=== PATIENT | male | born 1975 | race Caucasian/White ===

== ENCOUNTER 2018-06-21 08:32 | Emergency (ER) | payer OTHER, SELFPAY ==
[2018-06-21] VITALS (8 sets, daily range): BP systolic 117–176; BP diastolic 69–112; PULSE 91–132; RESP 16–22; TEMP 37.7–38.3; O2SAT 97–98; BMI 77.5
--- NOTE | 2018-06-21 08:59 | ED.HA ---
HPI - Headache General Chief Complaint: Headache Stated Complaint: SICK FOR WEEK,SINUS INFECTION Time Seen by Provider: 06/21/18 08:55 Source: patient Mode of arrival: ambulatory Limitations: no limitations History of Present Illness HPI Narrative: This is a 43-year-old male comes to the emergency department with complaint of sinus pressure, nasal congestion, some upper respiratory symptoms. Patient states that he has been having this since about the 12 of June and has not been improving. Patient states that he has had fever on the 12 of June and feels like he has 1 today. He is denying any chest pain or pressure, he states some shortness of breath but more upper respiratory. He denies any diaphoresis, no nausea, no vomiting or other sweating. Patient has not had any other GI or urinary symptoms. Patient states he has had pressure particularly the maxillary sinus on the right and a little bit above. He states that it has been moderate. 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 Patient states they never did find out why he had the cardiac arrest. He does take medication for blood pressure. Patient states his rn transport is Dr. Beth through [facility]. He is denying any headache it is more sinus discomfort. Related Data Home Medications Medication Instructions Recorded Confirmed metoprolol succinate 25 mg PO BID 06/21/18 06/21/18 Previous Rx's Medication Instructions Recorded amoxicillin 500 mg PO TID #30 cap 06/21/18 Allergies Allergy/AdvReac Type Severity Reaction Status Date / Time No Known Drug Allergies Allergy Verified 06/21/18 09:22 Review of Systems Review of Systems ROS Unobtainable: All systems reviewed & are unremarkable except as noted in HPI and below Constitutional Denies excessive sweating, Reports fever(s) (Today) and Denies headache(s) Eyes Denies blurry vision and Denies change in vision ENT Ears, Nose, Mouth, and Throat: Reports as per HPI, Reports dental pain, Denies dizziness, Denies ear discharge, Reports facial pain (sinus pressure), Denies headache(s), Reports nasal congestion, Reports post nasal drip, Reports sinus pressure and Denies sore throat Cardiovascular Denies chest pain, Denies diaphoresis, Denies syncope, Reports rapid heart rate (normally at doctor), Denies edema, Denies irregular heart rhythm, Denies lightheadedness, Denies palpitations, Denies dyspnea, Denies dyspnea on exertion and Denies orthopnea Respiratory Denies chest congestion, Denies cough, Denies excessive phlegm production, Denies pain with cough, Denies dyspnea, Denies dyspnea on exertion and Denies wheezing Gastrointestinal Gastrointestinal: Denies abdominal pain, Denies change in bowel habits, Denies diarrhea, Denies nausea and Denies vomiting Genitourinary Denies difficulty urinating Musculoskeletal Denies back pain Integumentary/Breasts Denies rash Neurologic Denies dizziness, Denies syncope and Denies headache(s) Endocrine Denies excessive sweating and Denies palpitations Allergic/Immunologic Denies wheezing PFSH Medical History Cardiac arrest, cause unspecified (Acute) Social History Smoking Status: Smoker, status unknown Exam Narrative Exam Narrative: GEN: Obese male, alert and oriented x 3, patient appears to be in mild distress. No diaphoresis. HEENT: Atraumatic, pupils are equal round reactive to light, extraocular movements are intact, nares thick yellow rhinorrhea, TMs are clear with no fluid, there is no conjunctival pallor. Throat is clear without any exudates, erythema, tonsillar enlargement or uvular deviation, patient has moderate tenderness over the right maxilla, no facial swelling. HEART: Regular but tachycardic rate and rhythm without murmur, clicks, rubs. Pulses are equal in upper and lower extremities LUNGS:Lungs slightly decreased, no wheezes, rales, crackles, chest moves symmetrically, no tachypnea accessory muscle use. ABD:bowel sounds normal, soft, non-tender, no guarding, rebound, rigidity, no masses noted, no hepatosplenomegaly :No CVA tenderness MSCL: Non-tender, no muscle atrophy, muscles strength 5/5 upper and lower extremities, full range of motion, normal gait NEURO:CN 2-12 intact, sensation normal, reflexes 2/4 upper and lower extremities. Initial Vital Signs Initial Vital Signs: Vital Signs Temperature 100.6 F H 06/21/18 08:42 Pulse Rate 132 H 06/21/18 08:42 Respiratory Rate 22 06/21/18 08:42 Blood Pressure 176/112 H 06/21/18 08:42 Pulse Oximetry 98 06/21/18 08:42 Course Orders Ordered: Discontinued Medications Acetaminophen (Tylenol) 650 mg PO NOW ONE Stop: 06/21/18 08:58 Last Admin: 06/21/18 09:28 Dose: 650 mg Atropine Sulfate (Atropine) 1 mg IV NOW ONE Stop: 06/21/18 09:14 Last Admin: 06/21/18 10:26 Dose: Sodium Chloride (Normal Saline 0.9%) 7,350 mls @ 2,450 mls/hr 30 ml/kg infuse over 3 hr (7350 ml) IV CONT NANNETTE Last Infusion: 06/21/18 12:09 Dose: 0 mls/hr Admin: 06/21/18 09:28 Dose: 2,450 mls/hr Ondansetron HCl (Zofran) 4 mg IV NOW ONE Stop: 06/21/18 09:22 Last Admin: 06/21/18 09:28 Dose: 4 mg Vital Signs - 8 hr 06/21/18 12:01 06/21/18 12:09 Pulse Rate 91 H 95 H Respiratory Rate 16 16 Blood Pressure 126/79 Blood Pressure [Right Arm] 126/79 Pulse Oximetry 97 97 MDM - Headache Lab Data Attestation: I reviewed the patient's lab results. Result diagrams: 06/21/18 09:00 06/21/18 09:00 Lab Results 06/21/18 06/21/18 06/21/18 Range/Units 09:00 09:00 09:00 WBC 15.3 H (4.5-11.0) X10^3/uL RBC 4.88 (4.5-5.9) X10^6/uL Hgb 15.4 (13.5-17.5) g/dL Hct 44.7 (41-53) % MCV 91.6 (80-100) fL MCH 31.6 (26-34) PG MCHC 34.5 (30-36) % RDW 13.3 (11.6-14.8) % Plt Count 406 H (150-400) X10^3/uL Neut % (Auto) 82.4 H (50-75) % Lymph % (Auto) 9.3 L (25-40) % [place] % (Auto) 7.9 (3-14) % Eos % (Auto) 0.2 L (2-4) % Baso % (Auto) 0.2 (0-2) % Neut # (Auto) 32472 H (0002-7501) /uL Sodium 135 L (137-145) mmol/L Potassium 4.4 (3.4-5.1) mmol/L Chloride 97 L (98-107) mmol/L Carbon Dioxide 24 (22-32) mmol/L BUN 10 (9-20) mg/dL Creatinine 1.00 (0.66-1.25) mg/dL Estimated GFR > 60.0 (>60) mL/min BUN/Creatinine Ratio 10.0 (6-22) Glucose 112 H (70-100) mg/dL Lactate (0.7-2.1) mmol/L Calcium 9.7 (8.4-10.2) mg/dL Total Bilirubin 0.9 (0.2-1.3) mg/dL AST 28 (17-59) IU/L ALT 48 (21-72) IU/L Alkaline Phosphatase 101 (38-126) U/L Total Creatine Kinase 63 (55-170) U/L CK-MB (CK-2) TNP CK-MB (CK-2) Rel Index TNP Troponin I < 0.012 (0.01-0.034) ng/mL Total Protein 9.0 H (6.3-8.2) g/dL Albumin 4.8 (3.5-5.0) g/dL Globulin 4.2 H (1.7-4.1) g/dL Albumin/Globulin Ratio 1.1 (1.0-2.8) Procalcitonin 0.11 (<0.5) ng/mL Influenza A & B (PCR) (Negative) 06/21/18 06/21/18 06/21/18 Range/Units 09:00 09:00 09:48 WBC (4.5-11.0) X10^3/uL RBC (4.5-5.9) X10^6/uL Hgb (13.5-17.5) g/dL Hct (41-53) % MCV (80-100) fL MCH (26-34) PG MCHC (30-36) % RDW (11.6-14.8) % Plt Count (150-400) X10^3/uL Neut % (Auto) (50-75) % Lymph % (Auto) (25-40) % [place] % (Auto) (3-14) % Eos % (Auto) (2-4) % Baso % (Auto) (0-2) % Neut # (Auto) (4750-7805) /uL Sodium (137-145) mmol/L Potassium (3.4-5.1) mmol/L Chloride (98-107) mmol/L Carbon Dioxide (22-32) mmol/L BUN (9-20) mg/dL Creatinine (0.66-1.25) mg/dL Estimated GFR (>60) mL/min BUN/Creatinine Ratio (6-22) Glucose (70-100) mg/dL Lactate 0.7 (0.7-2.1) mmol/L Calcium (8.4-10.2) mg/dL Total Bilirubin (0.2-1.3) mg/dL AST (17-59) IU/L ALT (21-72) IU/L Alkaline Phosphatase (38-126) U/L Total Creatine Kinase Cancelled (55-170) U/L CK-MB (CK-2) Cancelled CK-MB (CK-2) Rel Index Cancelled Troponin I Cancelled (0.01-0.034) ng/mL Total Protein (6.3-8.2) g/dL Albumin (3.5-5.0) g/dL Globulin (1.7-4.1) g/dL Albumin/Globulin Ratio (1.0-2.8) Procalcitonin (<0.5) ng/mL Influenza A & B (PCR) Negative (Negative) Point of Care Testing Glucose POC 358 Imaging Data Chest x-ray: Radiologist's impression: [address] [address] XRay Report Signed Patient: Jazmine Yu MR#: [id number] : 1975 Acct:[id number] Age/Sex: 43 / M Date of Service: 06/21/18 Loc: ED Accession Number: [id number] Procedure: XR chest 1V Ordering Provider: Eliana Foreman D.O. PROCEDURE: XR CHEST 1V INDICATIONS: headache, fever, cough, nasal congestion TECHNIQUE: One view of the chest was acquired. COMPARISON: None. FINDINGS: Surgical changes and devices: Left chest wall cardiac device lead is seen in the region of right ventricle.. Lungs and pleura: No pleural effusions or pneumothorax. Mild increased bronchovascular markings and bilateral hilar region are seen with Dr. wall thickening. No definite focal infiltrate. Mediastinum: Mediastinal contours appear normal. Heart size is normal. Bones and chest wall: No suspicious bony lesions. Overlying soft tissues appear unremarkable. IMPRESSION: Suggestion of mild reactive early disease such as bronchitis or asthma. No definite focal infiltrate. Dictated by: Cristian Stafford M.D. on 06/21/2018 at 9:38 Approved by: Cristian Stafford M.D. on 06/21/2018 at 9:40 ECG Data Attestation: I personally reviewed and interpreted this ECG as follows: Prior ECG tracings: not available for review Interpretation: Sinus tachycardia patient has some T-wave inversion in 3 AVF but nonspecific otherwise. No ST elevation appreciated. Rate is 118, P are interval is 134, QRS is 93 and QTC is 366. Patient has a repeat EKG patient's rate is 93 P are is 108 QRS is 90 and QTC is 411. Patient does not have any ST segment changes. MDM Narrative Medical decision making narrative: After patient's IV was placed his heart rate dropped down into the 50s he became lightheaded and diaphoretic and had a syncopal episode while lying in bed. Patient continued to have a heart rate in the 50s and was unresponsive was given atropine IV. HR did not respond immediately. After several minutes improved to 90s and then slowly to 120's again. Patient states that he has had several syncopal episodes while having IVs Um placed in the past. He states he does not do well with blood. He states he started feeling lightheaded while they were placing the IV and his syncopal episode happened a minute or 2 afterwards. On recheck patient is feeling much better. Heart rate is still elevated in the 1 teens. He states that this is a chronic issue that typically happens when he shows up at a physician's office or the emergency department. Patient does have a CA CD defibrillator and states that it does transmit regularly and is reviewed. He states he got a call about a month ago when his heart rate was elevated for a period but he was exercising. He has not had any other calls recently. Patient does have a white count, he is febrile with sinus tenderness. He has some yellowish thick drip nasal drainage he meets criteria for sinusitis. We discussed CT versus going ahead with treatment patient is comfortable with plan to treat with antibiotics. Patient has otherwise been asymptomatic while here. Discussed with patient he feels comfortable returning home plan for antibiotics and short-term follow-up. Patient has a white count, the rest of his labs did not show any major abnormalities. Chest x-ray does not show any pneumonia. Patient's heart rate has improved to the mid 90s consistently after 1.5 L of fluid. Patient is feeling much better and plan to DC home to start on oral antibiotics. Patient is to return if any other new changes and we discussed anticipatory guidance. Discharge Plan Departure Patient Disposition: Home Clinical Impression: Sinusitis Discharge Date/Time: 06/21/18 12:10 Interventions: ED Discharge Assessment Last Done: 06/21/18 12:09 Instructions: DI for Sinusitis Activity Restrictions/Additional Instructions: Follow up with primary care physician in the next 3-5 days if your symptoms are not improving rapidly. Take antibiotics until they are completely gone. You may take ibuprofen and/or Tylenol as needed for fevers as well as a pain. Return to the emergency department for persistent fevers, swelling of the face, mouth, pain behind the eye, severe headaches, worsening facial pain if you are having any chest pain, shortness of breath, passing out, persistent vomiting or other new or concerning symptoms. Prescriptions: New amoxicillin 500 mg capsule 500 mg PO TID Qty: 30 RF: 0 No Action metoprolol succinate 25 mg tablet extended release 24 hr 25 mg PO BID RF: 0 Stand Alone Forms: Work Release Note
--- NOTE | 2018-06-21 09:20 | ED_ITS ---
HPI - Headache General Chief Complaint: Headache Stated Complaint: SICK FOR WEEK,SINUS INFECTION Time Seen by Provider: 06/21/18 08:55 Source: patient Mode of arrival: ambulatory Limitations: no limitations History of Present Illness HPI Narrative: This is a 43-year-old male comes to the emergency department with complaint of sinus pressure, nasal congestion, some upper respiratory symptoms. Patient states that he has been having this since about the 12 of June and has not been improving. Patient states that he has had fever on the 12 of June and feels like he has 1 today. He is denying any chest pain or pressure, he states some shortness of breath but more upper respiratory. He denies any diaphoresis, no nausea, no vomiting or other sweating. Patient has not had any other GI or urinary symptoms. Patient states he has had pressure particularly the maxillary sinus on the right and a little bit above. He states that it has been moderate. 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 Patient states they never did find out why he had the cardiac arrest. He does take medication for blood pressure. Patient states his executive advisor is Dr. Beth through [facility]. He is denying any headache it is more sinus discomfort. Related Data Home Medications Medication Instructions Recorded Confirmed metoprolol succinate 25 mg PO BID 06/21/18 06/21/18 Previous Rx's Medication Instructions Recorded amoxicillin 500 mg PO TID #30 cap 06/21/18 Allergies Allergy/AdvReac Type Severity Reaction Status Date / Time No Known Drug Allergies Allergy Verified 06/21/18 09:22 Review of Systems Review of Systems ROS Unobtainable: All systems reviewed & are unremarkable except as noted in HPI and below Constitutional Denies excessive sweating, Reports fever(s) (Today) and Denies headache(s) Eyes Denies blurry vision and Denies change in vision ENT Ears, Nose, Mouth, and Throat: Reports as per HPI, Reports dental pain, Denies dizziness, Denies ear discharge, Reports facial pain (sinus pressure), Denies headache(s), Reports nasal congestion, Reports post nasal drip, Reports sinus pressure and Denies sore throat Cardiovascular Denies chest pain, Denies diaphoresis, Denies syncope, Reports rapid heart rate (normally at doctor), Denies edema, Denies irregular heart rhythm, Denies lightheadedness, Denies palpitations, Denies dyspnea, Denies dyspnea on exertion and Denies orthopnea Respiratory Denies chest congestion, Denies cough, Denies excessive phlegm production, Denies pain with cough, Denies dyspnea, Denies dyspnea on exertion and Denies wheezing Gastrointestinal Gastrointestinal: Denies abdominal pain, Denies change in bowel habits, Denies diarrhea, Denies nausea and Denies vomiting Genitourinary Denies difficulty urinating Musculoskeletal Denies back pain Integumentary/Breasts Denies rash Neurologic Denies dizziness, Denies syncope and Denies headache(s) Endocrine Denies excessive sweating and Denies palpitations Allergic/Immunologic Denies wheezing PFSH Medical History Cardiac arrest, cause unspecified (Acute) Social History Smoking Status: Smoker, status unknown Exam Narrative Exam Narrative: GEN: Obese male, alert and oriented x 3, patient appears to be in mild distress. No diaphoresis. HEENT: Atraumatic, pupils are equal round reactive to light, extraocular movements are intact, nares thick yellow rhinorrhea, TMs are clear with no fluid , there is no conjunctival pallor. Throat is clear without any exudates, erythema, tonsillar enlargement or uvular deviation, patient has moderate tenderness over the right maxilla, no facial swelling. HEART: Regular but tachycardic rate and rhythm without murmur, clicks, rubs. Pulses are equal in upper and lower extremities LUNGS:Lungs slightly decreased, no wheezes, rales, crackles, chest moves symmetrically, no tachypnea accessory muscle use. ABD:bowel sounds normal, soft, non-tender, no guarding, rebound, rigidity, no masses noted, no hepatosplenomegaly :No CVA tenderness MSCL: Non-tender, no muscle atrophy, muscles strength 5/5 upper and lower extremities, full range of motion, normal gait NEURO:CN 2-12 intact, sensation normal, reflexes 2/4 upper and lower extremities. Initial Vital Signs Initial Vital Signs: Vital Signs Temperature 100.6 F H 06/21/18 08:42 Pulse Rate 132 H 06/21/18 08:42 Respiratory Rate 22 06/21/18 08:42 Blood Pressure 176/112 H 06/21/18 08:42 Pulse Oximetry 98 06/21/18 08:42 Course Orders Ordered: Discontinued Medications Acetaminophen (Tylenol) 650 mg PO NOW ONE Stop: 06/21/18 08:58 Last Admin: 06/21/18 09:28 Dose: 650 mg Atropine Sulfate (Atropine) 1 mg IV NOW ONE Stop: 06/21/18 09:14 Last Admin: 06/21/18 10:26 Dose: Sodium Chloride (Normal Saline 0.9%) 7,350 mls @ 2,450 mls/hr 30 ml/kg infuse over 3 hr (7350 ml) IV CONT NANNETTE Last Infusion: 06/21/18 12:09 Dose: 0 mls/hr Admin: 06/21/18 09:28 Dose: 2,450 mls/hr Ondansetron HCl (Zofran) 4 mg IV NOW ONE Stop: 06/21/18 09:22 Last Admin: 06/21/18 09:28 Dose: 4 mg Vital Signs - 8 hr 06/21/18 12:01 06/21/18 12:09 Pulse Rate 91 H 95 H Respiratory Rate 16 16 Blood Pressure 126/79 Blood Pressure [Right Arm] 126/79 Pulse Oximetry 97 97 MDM - Headache Lab Data Attestation: I reviewed the patient's lab results. Result diagrams: 06/21/18 09:00 06/21/18 09:00 Lab Results 06/21/18 06/21/18 06/21/18 Range/Units 09:00 09:00 09:00 WBC 15.3 H (4.5-11.0) X10^3/uL RBC 4.88 (4.5-5.9) X10^6/uL Hgb 15.4 (13.5-17.5) g/dL Hct 44.7 (41-53) % MCV 91.6 (80-100) fL MCH 31.6 (26-34) PG MCHC 34.5 (30-36) % RDW 13.3 (11.6-14.8) % Plt Count 406 H (150-400) X10^3/uL Neut % (Auto) 82.4 H (50-75) % Lymph % (Auto) 9.3 L (25-40) % [place] % (Auto) 7.9 (3-14) % Eos % (Auto) 0.2 L (2-4) % Baso % (Auto) 0.2 (0-2) % Neut # (Auto) 23572 H (1022-1375) /uL Sodium 135 L (137-145) mmol/L Potassium 4.4 (3.4-5.1) mmol/L Chloride 97 L (98-107) mmol/L Carbon Dioxide 24 (22-32) mmol/L BUN 10 (9-20) mg/dL Creatinine 1.00 (0.66-1.25) mg/dL Estimated GFR > 60.0 (>60) mL/min BUN/Creatinine Ratio 10.0 (6-22) Glucose 112 H (70-100) mg/dL Lactate (0.7-2.1) mmol/L Calcium 9.7 (8.4-10.2) mg/dL Total Bilirubin 0.9 (0.2-1.3) mg/dL AST 28 (17-59) IU/L ALT 48 (21-72) IU/L Alkaline Phosphatase 101 (38-126) U/L Total Creatine Kinase 63 (55-170) U/L CK-MB (CK-2) TNP CK-MB (CK-2) Rel Index TNP Troponin I < 0.012 (0.01-0.034) ng/mL Total Protein 9.0 H (6.3-8.2) g/dL Albumin 4.8 (3.5-5.0) g/dL Globulin 4.2 H (1.7-4.1) g/dL Albumin/Globulin Ratio 1.1 (1.0-2.8) Procalcitonin 0.11 (<0.5) ng/mL Influenza A & B (PCR) (Negative) 06/21/18 06/21/18 06/21/18 Range/Units 09:00 09:00 09:48 WBC (4.5-11.0) X10^3/uL RBC (4.5-5.9) X10^6/uL Hgb (13.5-17.5) g/dL Hct (41-53) % MCV (80-100) fL MCH (26-34) PG MCHC (30-36) % RDW (11.6-14.8) % Plt Count (150-400) X10^3/uL Neut % (Auto) (50-75) % Lymph % (Auto) (25-40) % [place] % (Auto) (3-14) % Eos % (Auto) (2-4) % Baso % (Auto) (0-2) % Neut # (Auto) (5039-0238) /uL Sodium (137-145) mmol/L Potassium (3.4-5.1) mmol/L Chloride (98-107) mmol/L Carbon Dioxide (22-32) mmol/L BUN (9-20) mg/dL Creatinine (0.66-1.25) mg/dL Estimated GFR (>60) mL/min BUN/Creatinine Ratio (6-22) Glucose (70-100) mg/dL Lactate 0.7 (0.7-2.1) mmol/L Calcium (8.4-10.2) mg/dL Total Bilirubin (0.2-1.3) mg/dL AST (17-59) IU/L ALT (21-72) IU/L Alkaline Phosphatase (38-126) U/L Total Creatine Kinase Cancelled (55-170) U/L CK-MB (CK-2) Cancelled CK-MB (CK-2) Rel Index Cancelled Troponin I Cancelled (0.01-0.034) ng/mL Total Protein (6.3-8.2) g/dL Albumin (3.5-5.0) g/dL Globulin (1.7-4.1) g/dL Albumin/Globulin Ratio (1.0-2.8) Procalcitonin (<0.5) ng/mL Influenza A & B (PCR) Negative (Negative) Point of Care Testing Glucose POC 358 Imaging Data Chest x-ray: Radiologist's impression: [address] [address] XRay Report Signed Patient: Jazmine Yu MR#: [id number] : 1975 Acct:[id number] Age/Sex: 43 / M Date of Service: 06/21/18 Loc: ED Accession Number: [id number] Procedure: XR chest 1V Ordering Provider: Eliana Foreman D.O. PROCEDURE: XR CHEST 1V INDICATIONS: headache, fever, cough, nasal congestion TECHNIQUE: One view of the chest was acquired. COMPARISON: None. FINDINGS: Surgical changes and devices: Left chest wall cardiac device lead is seen in the region of right ventricle.. Lungs and pleura: No pleural effusions or pneumothorax. Mild increased bronchovascular markings and bilateral hilar region are seen with Dr. wall thickening. No definite focal infiltrate. Mediastinum: Mediastinal contours appear normal. Heart size is normal. Bones and chest wall: No suspicious bony lesions. Overlying soft tissues appear unremarkable. IMPRESSION: Suggestion of mild reactive early disease such as bronchitis or asthma. No definite focal infiltrate. Dictated by: Cristian Stafford M.D. on 06/21/2018 at 9:38 Approved by: Cristian Stafford M.D. on 06/21/2018 at 9:40 ECG Data Attestation: I personally reviewed and interpreted this ECG as follows: Prior ECG tracings: not available for review Interpretation: Sinus tachycardia patient has some T-wave inversion in 3 AVF but nonspecific otherwise. No ST elevation appreciated. Rate is 118, P are interval is 134, QRS is 93 and QTC is 366. Patient has a repeat EKG patient's rate is 93 P are is 108 QRS is 90 and QTC is 411. Patient does not have any ST segment changes. MDM Narrative Medical decision making narrative: After patient's IV was placed his heart rate dropped down into the 50s he became lightheaded and diaphoretic and had a syncopal episode while lying in bed. Patient continued to have a heart rate in the 50s and was unresponsive was given atropine IV. HR did not respond immediately. After several minutes improved to 90s and then slowly to 120's again. Patient states that he has had several syncopal episodes while having IVs Um placed in the past. He states he does not do well with blood. He states he started feeling lightheaded while they were placing the IV and his syncopal episode happened a minute or 2 afterwards. On recheck patient is feeling much better. Heart rate is still elevated in the 1 teens. He states that this is a chronic issue that typically happens when he shows up at a physician's office or the emergency department. Patient does have a CA CD defibrillator and states that it does transmit regularly and is reviewed. He states he got a call about a month ago when his heart rate was elevated for a period but he was exercising. He has not had any other calls recently. Patient does have a white count, he is febrile with sinus tenderness. He has some yellowish thick drip nasal drainage he meets criteria for sinusitis. We discussed CT versus going ahead with treatment patient is comfortable with plan to treat with antibiotics. Patient has otherwise been asymptomatic while here. Discussed with patient he feels comfortable returning home plan for antibiotics and short-term follow-up. Patient has a white count, the rest of his labs did not show any major abnormalities. Chest x-ray does not show any pneumonia. Patient's heart rate has improved to the mid 90s consistently after 1.5 L of fluid. Patient is feeling much better and plan to DC home to start on oral antibiotics. Patient is to return if any other new changes and we discussed anticipatory guidance. Discharge Plan Departure Patient Disposition: Home Clinical Impression: Sinusitis Discharge Date/Time: 06/21/18 12:10 Interventions: ED Discharge Assessment Last Done: 06/21/18 12:09 Instructions: DI for Sinusitis Activity Restrictions/Additional Instructions: Follow up with primary care physician in the next 3-5 days if your symptoms are not improving rapidly. Take antibiotics until they are completely gone. You may take ibuprofen and/or Tylenol as needed for fevers as well as a pain. Return to the emergency department for persistent fevers, swelling of the face, mouth, pain behind the eye, severe headaches, worsening facial pain if you are having any chest pain, shortness of breath, passing out, persistent vomiting or other new or concerning symptoms. Prescriptions: New amoxicillin 500 mg capsule 500 mg PO TID Qty: 30 RF: 0 No Action metoprolol succinate 25 mg tablet extended release 24 hr 25 mg PO BID RF: 0 Stand Alone Forms: Work Release Note
[2018-06-21 09:21] LABS: Add Manual Diff / Slide Review NO; Basophils Percent Auto 0.2 % (0-2); Eosinophils Percent Auto 0.2 % (2-4); Hematocrit 44.7 % (41-53); Hemoglobin 15.4 g/dL (13.5-17.5); Lymphocytes Percent Auto 9.3 % (25-40); Mean Corpuscular HGB Conc 34.5 % (30-36); Mean Corpuscular Hemoglobin 31.6 PG (26-34); Mean Corpuscular Volume 91.6 fL (80-100); Monocytes Percent Auto 7.9 % (3-14); Neutrophils Absolute Auto 12600 /uL (1500-7000); Neutrophils Percent Auto 82.4 % (50-75); Platelet Count 406 X10^3/uL (150-400); Red Blood Cell Count 4.88 X10^6/uL (4.5-5.9); Red Cell Distribution Width 13.3 % (11.6-14.8); White Blood Cell Count 15.3 X10^3/uL (4.5-11.0)
--- NOTE | 2018-06-21 09:22 | PC.NURSE ---
Sammi COKER and I started bilateral IVs on the patient. After insertion patient stated he was feeling as though he was going to pass out. Pt put in a supine position. Pt was restless, pale and heart rate dropped to 42. Pt was not able to be aroused to painful stimulation, lana newsome was called. While checking for a pulse the patient became responsive with heart rate in the 50s. Dr Foreman at bedside. Approximately 3 minutes after unresponsiveness, pt became pale again and started to become unresponsive again, Dr Foreman was able to keep patient conscious with painful stimulation. EKG obtained and Pt transfered to trauma room for treatment.
[2018-06-21] MEDS: ONDANSETRON 4 MG/2 ML INJ IV (09:28)
[2018-06-21] MEDS: ACETAMINOPHEN 325 MG TABLET 650 MG PO (09:28)
[2018-06-21] MEDS: SODIUM CHLORIDE 0.9% 2450 ML IV (09:28)
[2018-06-21 09:30] LABS: Lactate (Lactic Acid) 0.7 mmol/L (0.7-2.1)
[2018-06-21 09:31] LABS: Alanine Aminotransferase 48 IU/L (21-72); Albumin 4.8 g/dL (3.5-5.0); Albumin Globulin Ratio 1.1 (1.0-2.8); Alkaline Phosphatase 101 U/L (38-126); Aspartate Aminotransferase 28 IU/L (17-59); Bilirubin Total 0.9 mg/dL (0.2-1.3); Blood Urea Nitrogen 10 mg/dL (9-20); Calcium 9.7 mg/dL (8.4-10.2); Carbon Dioxide 24 mmol/L (22-32); Chloride 97 mmol/L (98-107); Creatine Kinase 63 U/L (55-170); Estimated Glomerular Filt Rate > 60.0 mL/min (>60); Globulin 4.2 g/dL (1.7-4.1); Glucose 112 mg/dL (70-100); HEMOLYSIS < 15 (0-50); Potassium 4.4 mmol/L (3.4-5.1); Sodium 135 mmol/L (137-145)
[2018-06-21 09:43] LABS: Troponin I < 0.012 ng/mL (0.01-0.034)
[2018-06-21 09:46] LABS: Procalcitonin 0.11 ng/mL (<0.5)
[2018-06-21 10:08] LABS: Influenza A and B by PCR Rapid Negative (Negative)
== END 2018-06-21 12:10 | disposition home or self-care (01) ==
PROVIDERS: Emergency Provider Emergency Medicine
DX: J32.9 Chronic sinusitis, unspecified (principal)
CPT/HCPCS: 36591; 71045; 80053; 82550; 83605; 84145; 84484; 85025; 87040; 87400; 93005; 96361; 96374; 99283; 99285; J2405